=== PATIENT | male | born 1995 | race Caucasian/White ===

== ENCOUNTER 2017-04-05 19:19 | Emergency (ER) | payer BC ==
[2017-04-05] MEDS ORDERED: Sodium Chloride 0.9% 10 ML Syringe FLUSH PRN (19:43)
[2017-04-05] MEDS ORDERED: Sodium Chloride 0.9% 1,000 ML IV ONE (19:44)
[2017-04-05 20:52] LABS: CHLORIDE,CL 98 mmol/L (98-107); SODIUM,NA 135 mmol/L (136-145)
[2017-04-05] MEDS: Acetaminophen 500 MG Tab PO ONE (21:20)
[2017-04-05] MEDS: Take Home: Doxycycline 100 MG Tab, 4 Tab Pack PO ONE (21:20)
--- NOTE | 2017-04-06 06:58 | EDM.PDOC ---
ED HPI GENERAL MEDICAL PROBLEM - General Chief Complaint: Fever Stated Complaint: fever, body aches Time Seen by Provider: 04/05/17 19:41 Source of Information: Reports: Patient History Limitations: Reports: No Limitations - History of Present Illness INITIAL COMMENTS - FREE TEXT/NARRATIVE: Pt. presents to ER with complaints of cough and congestion for 1 week. He has been experiencing fever, chills and body aches. No sore throat. No headache. No N/V/D. He has a history of RA. Pt. is not experiencing any shortness of breath or chest pain. Location: Reports: Generalized Generalized Pain Score (Numeric/FACES): 7 - Related Data Allergies Allergy/AdvReac Type Severity Reaction Status Date / Time amoxicillin Allergy Anaphylactic Verified 04/05/17 19:30 Shock azithromycin Allergy Anaphylactic Verified 04/05/17 19:30 Shock clavulanic acid Allergy Anaphylactic Verified 04/05/17 19:30 [From Augmentin] Shock Home Meds: Home Meds FLUoxetine HCl [Fluoxetine HCl] 1 cap PO DAILY 04/05/17 [History] Hydroxychloroquine Sulfate [Hydroxychloroquine Sulfate] 2 tab PO DAILY 04/05/17 [History] Naproxen Sodium [Aleve] 1 - 2 mg PO ASDIRECTED PRN 04/05/17 [History] Omeprazole [Omeprazole] 1 tab PO DAILY 04/05/17 [History] sulfaSALAzine [sulfaSALAzine DR] 1,000 mg PO DAILY 04/05/17 [History] Past Medical History Musculoskeletal History: Reports: RA Social & Family History - Tobacco Use Smoking Status *Q: Never Smoker ED ROS GENERAL - Review of Systems Review Of Systems: See Below Constitutional: Reports: No Symptoms HEENT: Reports: No Symptoms Respiratory: Reports: Cough Cardiovascular: Reports: No Symptoms GI/Abdominal: Reports: No Symptoms Musculoskeletal: Reports: No Symptoms Skin: Reports: No Symptoms Neurological: Reports: No Symptoms ED EXAM, GENERAL - Physical Exam Exam: See Below Exam Limited By: No Limitations General Appearance: Alert, WD/WN, No Apparent Distress Eye Exam: Bilateral Eye: EOMI, Foreign Body, PERRL Ears: Normal External Exam, Normal Canal, Hearing Grossly Normal, Normal TMs Ear Exam: Bilateral Ear: Auricle Normal, Canal Normal, TM normal Nose: Normal Inspection, Normal Mucosa, No Blood Throat/Mouth: Normal Inspection, Normal Lips, Normal Teeth, Normal Gums, Normal Oropharynx, Normal Voice, No Airway Compromise Head: Atraumatic, Normocephalic Neck: Normal Inspection, Supple, Non-Tender, Full Range of Motion Respiratory/Chest: No Respiratory Distress, Lungs Clear, Normal Breath Sounds, No Accessory Muscle Use, Chest Non-Tender, Crackles, Wheezing Cardiovascular: Normal Peripheral Pulses, Regular Rate, Rhythm, No Edema, No Gallop, No JVD, No Murmur, No Rub Peripheral Pulses: 3+: Radial (L), Radial (R) GI/Abdominal: Normal Bowel Sounds, Soft, Non-Tender, No Organomegaly, No Distention, No Abnormal Bruit, No Mass Back Exam: Normal Inspection, Full Range of Motion, NT Extremities: Normal Inspection, Normal Range of Motion, Non-Tender, Normal Capillary Refill, No Pedal Edema Neurological: Alert, Oriented, CN II-XII Intact, Normal Cognition, Normal Gait, Normal Reflexes, No Motor/Sensory Deficits Skin Exam: Warm, Dry, Intact, Normal Color, No Rash Course - Vital Signs Last Recorded V/S: Last Vital Signs Temp 37.6 C 04/05/17 19:34 Pulse 113 H 04/05/17 19:34 Resp 16 04/05/17 19:34 BP 143/77 H 04/05/17 19:34 Pulse Ox 95 04/05/17 19:34 - Orders/Labs/Meds Orders: Active Orders 24 hr Category Date Time Status Chest 2V [CR] Stat Exams 04/05/17 19:41 Taken CULTURE BLOOD [BC] Stat Lab 04/05/17 20:10 Results CULTURE BLOOD [BC] Stat Lab 04/05/17 20:19 Received Blood Culture x2 Reflex Set [OM.PC] Stat Oth 04/05/17 19:43 Ordered Peripheral IV Insertion Adult [OM.PC] Routine Oth 04/05/17 19:43 Ordered Labs: Laboratory Tests 04/05/17 04/05/17 04/05/17 Range/Units 20:10 20:10 20:10 WBC 8.6 (4.0-10.0) x10^3/uL RBC 4.90 (4.5-6.0) x10^6/uL Hgb 15.2 (14.0-18.0) g/dL Hct 42.3 (40.0-52.0) % MCV 86.3 (78.0-93.0) fL MCH 31.0 (26.0-32.0) pg MCHC 35.9 (32.0-36.0) g/dL RDW Coeff of Christel 12.5 (10.0-15.0) % Plt Count 177 (130-400) x10^3/uL Neut % (Auto) 71.4 (50.0-80.0) % Lymph % (Auto) 21.0 L (25.0-50.0) % Calvert % (Auto) 7.4 (2.0-11.0) % Eos % (Auto) 0.1 (0.0-4.0) % Baso % (Auto) 0.1 L (0.2-1.2) % PT 10.6 (9.8-11.8) SEC INR 1.0 L (2.0-3.5) Sodium 135 L (136-145) mmol/L Potassium 3.6 (3.5-5.1) mmol/L Chloride 98 (98-107) mmol/L Carbon Dioxide 25 (21-32) mmol/L BUN 15 (7-18) mg/dL Creatinine 1.0 (0.70-1.30) mg/dL Est Cr Clr Drug Dosing TNP Estimated GFR (MDRD) > 60 Glucose 97 (74-106) mg/dL Lactic Acid (0.4-2.0) mmol/L Calcium 9.2 (8.5-10.1) mg/dL Corrected Calcium 8.88 (8.5-10.1) mg/dL Total Bilirubin 1.3 H (0.2-1.0) mg/dL AST 27 (15-37) U/L ALT 33 (16-63) U/L Alkaline Phosphatase 84 (46-116) U/L C-Reactive Protein 13.6 H (<=0.9) mg/dL Total Protein 8.3 H (6.4-8.2) g/dL Albumin 4.4 (3.4-5.0) g/dL Globulin 3.9 Albumin/Globulin Ratio 1.13 02/20/18 Range/Units 20:10 WBC (4.0-10.0) x10^3/uL RBC (4.5-6.0) x10^6/uL Hgb (14.0-18.0) g/dL Hct (40.0-52.0) % MCV (78.0-93.0) fL MCH (26.0-32.0) pg MCHC (32.0-36.0) g/dL RDW Coeff of Christel (10.0-15.0) % Plt Count (130-400) x10^3/uL Neut % (Auto) (50.0-80.0) % Lymph % (Auto) (25.0-50.0) % Calvert % (Auto) (2.0-11.0) % Eos % (Auto) (0.0-4.0) % Baso % (Auto) (0.2-1.2) % PT (9.8-11.8) SEC INR (2.0-3.5) Sodium (136-145) mmol/L Potassium (3.5-5.1) mmol/L Chloride (98-107) mmol/L Carbon Dioxide (21-32) mmol/L BUN (7-18) mg/dL Creatinine (0.70-1.30) mg/dL Est Cr Clr Drug Dosing Estimated GFR (MDRD) Glucose (74-106) mg/dL Lactic Acid 0.9 (0.4-2.0) mmol/L Calcium (8.5-10.1) mg/dL Corrected Calcium (8.5-10.1) mg/dL Total Bilirubin (0.2-1.0) mg/dL AST (15-37) U/L ALT (16-63) U/L Alkaline Phosphatase (46-116) U/L C-Reactive Protein (<=0.9) mg/dL Total Protein (6.4-8.2) g/dL Albumin (3.4-5.0) g/dL Globulin Albumin/Globulin Ratio Meds: Medications Discontinued Medications Generic Name Dose Route Start Last Admin Trade Name Freq PRN Reason Stop Dose Admin Acetaminophen 1,000 mg 04/05/17 19:44 04/05/17 21:20 Tylenol Extra Strength PO 04/05/17 19:45 1,000 mg ONETIME ONE Administration Doxycycline Monohydrate 1 packet 04/05/17 21:12 04/05/17 21:20 Take Home: Doxycycline 100 Mg, 4 Tab Pack PO 04/05/17 21:13 1 packet ONETIME ONE Administration Sodium Chloride 1,000 mls @ 1,000 mls/hr 04/05/17 19:44 Normal Saline IV 04/05/17 20:43 .BOLUS ONE Sodium Chloride 10 ml 04/05/17 19:43 Saline Flush FLUSH ASDIRECTED PRN Keep Vein Open - Radiology Interpretation Free Text/Narrative:: Evidence of lingular infiltrate Departure - Departure Time of Disposition: 21:28 Disposition: Home, Self-Care 01 Clinical Impression: Pneumonia - Discharge Information Instructions: Community-Acquired Pneumonia, Adult Referrals: PCP,Not In Area [Primary Care Provider] - Forms: ED Department Discharge Additional Instructions: Doxycycline 100mg twice daily for 10 days tylenol and ibuprofen for fever/discomfort Return to ER if increased dyspnea, lightheadedness, or chest pain - My Orders Last 24 Hours: My Active Orders 04/05/17 19:41 Chest 2V [CR] Stat 04/05/17 19:43 Blood Culture x2 Reflex Set [OM.PC] Stat Peripheral IV Insertion Adult [OM.PC] Routine 04/05/17 20:10 CULTURE BLOOD [BC] Stat 04/05/17 20:19 CULTURE BLOOD [BC] Stat - Assessment/Plan Last 24 Hours: My Active Orders 04/05/17 19:41 Chest 2V [CR] Stat 04/05/17 19:43 Blood Culture x2 Reflex Set [OM.PC] Stat Peripheral IV Insertion Adult [OM.PC] Routine 04/05/17 20:10 CULTURE BLOOD [BC] Stat 04/05/17 20:19 CULTURE BLOOD [BC] Stat
== END 2017-04-05 21:28 | disposition home or self-care (01) ==
LOC: VM.ED 19:19
DX: J18.9 Pneumonia, unspecified organism (principal); M06.9 Rheumatoid arthritis, unspecified; Z88.1 Allergy status to other antibiotic agents; Z79.899 Other long term (current) drug therapy
CPT/HCPCS: 36415; 71046; 80053; 83605; 85025; 85610; 86140; 87040; 87804; 99284; A9270

== ENCOUNTER 2017-04-07 06:25 | Emergency (ER) | payer BC ==
[2017-04-07] MEDS ORDERED: Sodium Chloride 0.9% 10 ML Syringe FLUSH PRN (06:34)
[2017-04-07] MEDS: Sodium Chloride 0.9% 1,000 ML IV ONE ×2 (06:50→07:45)
[2017-04-07] MEDS: Ondansetron 4 MG/2 ML SDV IVPUSH ONE (06:59)
[2017-04-07] MEDS: Acetaminophen 325 MG Tab PO ONE (07:52)
--- NOTE | 2017-04-07 09:08 | EDM.PDOC ---
ED HPI GENERAL MEDICAL PROBLEM - General Chief Complaint: General Stated Complaint: N/V, recent diagnosis pneumonia Time Seen by Provider: 04/07/17 06:33 Source of Information: Reports: Patient History Limitations: Reports: No Limitations - History of Present Illness INITIAL COMMENTS - FREE TEXT/NARRATIVE: Patient comes in this AM with complaints of nausea, vomiting, fever, and not being able to keep fluids down. Was recently diagnosed with pneumonia. He is requesting fluids and has no other complaints. States his chest does hurt when he coughs. No complaints of SOB, headache, bowel or bladder problems. NO blood in emesis, urine, or stool. Onset: Gradual Location: Reports: Generalized Associated Symptoms: Reports: Nausea/Vomiting Generalized joint pain Pain Score (Numeric/FACES): 7 - Related Data Allergies Allergy/AdvReac Type Severity Reaction Status Date / Time amoxicillin Allergy Anaphylactic Verified 04/07/17 06:32 Shock azithromycin Allergy Anaphylactic Verified 04/07/17 06:32 Shock clavulanic acid Allergy Anaphylactic Verified 04/07/17 06:32 [From Augmentin] Shock Home Meds: Home Meds FLUoxetine HCl [Fluoxetine HCl] 1 cap PO DAILY 04/05/17 [History] Hydroxychloroquine Sulfate [Hydroxychloroquine Sulfate] 2 tab PO DAILY 04/05/17 [History] Naproxen Sodium [Aleve] 1 - 2 mg PO ASDIRECTED PRN 04/05/17 [History] Omeprazole [Omeprazole] 1 tab PO DAILY 04/05/17 [History] sulfaSALAzine [sulfaSALAzine DR] 1,000 mg PO DAILY 04/05/17 [History] Past Medical History Musculoskeletal History: Reports: RA Social & Family History - Tobacco Use Smoking Status *Q: Never Smoker ED ROS GENERAL - Review of Systems Review Of Systems: See Below Constitutional: Reports: Fever, Chills HEENT: Reports: No Symptoms Respiratory: Reports: No Symptoms Cardiovascular: Reports: Chest Pain (when coughing and from coughing) Endocrine: Reports: No Symptoms GI/Abdominal: Reports: Nausea, Vomiting : Reports: No Symptoms Musculoskeletal: Reports: No Symptoms Skin: Reports: No Symptoms Neurological: Reports: No Symptoms Psychiatric: Reports: No Symptoms Hematologic/Lymphatic: Reports: No Symptoms Immunologic: Reports: No Symptoms ED EXAM, GENERAL - Physical Exam Exam: See Below Exam Limited By: No Limitations General Appearance: Alert, WD/WN, Mild Distress Eye Exam: Bilateral Eye: EOMI, Normal Inspection, PERRL Ears: Normal TMs Nose: Normal Inspection, Normal Mucosa, No Blood Throat/Mouth: Normal Inspection, Normal Lips, Normal Teeth, Normal Gums, Normal Oropharynx, Normal Voice, No Airway Compromise Head: Atraumatic, Normocephalic Neck: Normal Inspection, Supple, Non-Tender, Full Range of Motion Respiratory/Chest: No Respiratory Distress, Lungs Clear, Normal Breath Sounds, No Accessory Muscle Use, Chest Non-Tender Cardiovascular: Normal Peripheral Pulses, No Edema, No Gallop, No JVD, No Murmur , No Rub, Tachycardia Peripheral Pulses: 2+: Posterior Tibial (L), Posterior Tibial (R), Dorsalis Pedis (L), Dorsalis Pedis (R) GI/Abdominal: Normal Bowel Sounds, Soft, Non-Tender, No Organomegaly, No Distention, No Abnormal Bruit, No Mass Extremities: Normal Inspection, Normal Range of Motion, Non-Tender, Normal Capillary Refill, No Pedal Edema Neurological: Alert, Oriented, CN II-XII Intact, Normal Cognition, Normal Gait, Normal Reflexes, No Motor/Sensory Deficits Psychiatric: Normal Affect, Normal Mood Skin Exam: Warm, Intact, Diaphoretic Lymphatic: No Adenopathy Course - Vital Signs Last Recorded V/S: Last Vital Signs Temp 38.7 C H 04/07/17 07:52 Pulse 88 04/07/17 07:48 Resp 16 04/07/17 06:25 BP 175/86 H 04/07/17 06:25 Pulse Ox 92 L 04/07/17 06:25 - Orders/Labs/Meds Orders: Active Orders 24 hr Category Date Time Status Sodium Chloride 0.9% [Saline Flush] Med 04/07/17 06:34 Active 10 ml FLUSH ASDIRECTED PRN Saline Lock Insert [OM.PC] Routine Oth 04/07/17 06:34 Ordered Medication Orders Sodium Chloride (Saline Flush) 10 ml FLUSH ASDIRECTED PRN PRN Reason: Keep Vein Open Meds: Medications Generic Name Dose Route Start Last Admin Trade Name Freq PRN Reason Stop Dose Admin Sodium Chloride 10 ml 04/07/17 06:34 Saline Flush FLUSH ASDIRECTED PRN Keep Vein Open Discontinued Medications Generic Name Dose Route Start Last Admin Trade Name Freq PRN Reason Stop Dose Admin Acetaminophen 650 mg 04/07/17 07:49 04/07/17 07:52 Tylenol PO 04/07/17 07:50 650 mg NOW ONE Administration Sodium Chloride 1,000 mls @ 999 mls/hr 04/07/17 06:34 04/07/17 06:50 Normal Saline IV 04/07/17 07:34 999 mls/hr ONETIME ONE Administration Sodium Chloride 1,000 mls @ 999 mls/hr 04/07/17 07:29 04/07/17 07:45 Normal Saline IV 04/07/17 08:29 999 mls/hr ONETIME ONE Administration Ondansetron HCl 4 mg 04/07/17 06:35 04/07/17 06:59 Zofran IVPUSH 04/07/17 06:36 4 mg ONETIME ONE Administration Departure - Departure Time of Disposition: 09:15 Disposition: Home, Self-Care 01 Condition: Good Clinical Impression: Pneumonia, Dehydration - Discharge Information Instructions: Dehydration, Adult, [id number], Community-Acquired Pneumonia, Adult, [id number] Referrals: PCP,Not In Area [Primary Care Provider] - Additional Instructions: Stay well hydrated Follow up with your primary doctor as needed for symptom management I did send a prescription for zofran with you today. Take it if you continue to be nauseated Please call us with any questions or concerns - Problem List & Annotations (1) Pneumonia SNOMED Code(s): 810496741 Code(s): J18.9 - PNEUMONIA, UNSPECIFIED ORGANISM Status: Acute Priority: Medium Current Visit: Yes Qualifiers: Pneumonia type: due to unspecified organism Laterality: unspecified laterality Lung location: unspecified part of lung Qualified Code(s): J18.9 - Pneumonia, unspecified organism (2) Dehydration SNOMED Code(s): 83058184 Code(s): E86.0 - DEHYDRATION Status: Acute Priority: Medium Current Visit: Yes - Problem List Review Problem List Initiated/Reviewed/Updated: Yes - My Orders Last 24 Hours: My Active Orders 04/07/17 06:34 Sodium Chloride 0.9% [Saline Flush] 10 ml FLUSH ASDIRECTED PRN Saline Lock Insert [OM.PC] Routine - Assessment/Plan Last 24 Hours: My Active Orders 04/07/17 06:34 Sodium Chloride 0.9% [Saline Flush] 10 ml FLUSH ASDIRECTED PRN Saline Lock Insert [OM.PC] Routine Assessment:: dehydration Plan: Stay well hydrated Follow up with your primary doctor as needed for symptom management I did send a prescription for zofran with you today. Take it if you continue to be nauseated Please call us with any questions or concerns
== END 2017-04-07 09:15 | disposition home or self-care (01) ==
LOC: VM.ED 06:25
DX: J18.9 Pneumonia, unspecified organism (principal); E86.0 Dehydration; Z88.1 Allergy status to other antibiotic agents; Z88.8 Allergy status to other drugs, medicaments and biological substances; Z79.899 Other long term (current) drug therapy
CPT/HCPCS: 96361; 96374; 99284; A9270; J2405; J7030